=== PATIENT | male | born 1980 | race Two or more races ===

== ENCOUNTER 2024-06-17 13:13 | Emergency (ER) | payer MEDICAID ==
[~2024-06-17] VITALS: Ht 182.9 cm; Wt 159.7 kg
[2024-06-17 14:08] LABS: BASOPHILS % (AUTO) 0.3 % (0.0-2.0); EOSINOPHILS # (AUTO) 0.1 K/uL (0.0-0.7); EOSINOPHILS % (AUTO) 0.7 % (0.0-6.0); HEMATOCRIT 43 % (39-51); HEMOGLOBIN 14.7 g/dL (13.5-17.5); LYMPHOCYTES # (AUTO) 3.1 K/uL (0.8-4.8); LYMPHOCYTES % (AUTO) 32.2 % (20.0-44.0); MEAN CORPUSCULAR HEMOGLOBIN 27 PG (26.0-33.0); MEAN CORPUSCULAR HGB CONC 34 g/dl (31.0-36.0); MEAN CORPUSCULAR VOLUME 80 fL (80-96); MONOCYTES # (AUTO) 0.8 K/uL (0.1-1.30); NEUTROPHILS # (AUTO) 5.7 K/uL (1.8-8.9); NEUTROPHILS % (AUTO) 58.8 % (43.0-81.0); PLATELET COUNT (AUTO) 186 K/uL (150-450); RED BLOOD CELL COUNT(AUTO) 5.37 MIL/uL (4.5-6.0); WHITE BLOOD COUNT (AUTO) 9.7 K/uL (4.3-11.0)
[2024-06-17 14:11] LABS: CALCIUM, SERUM 9.2 mg/dL (8.5-10.1); CREATININE 0.9 mg/dL (0.6-1.3); POTASSIUM 3.9 mmol/L (3.5-5.1)
[2024-06-17] MEDS ORDERED: ACET-2605 PO (16:28)
[2024-06-17] MEDS ORDERED: NAPR-1009 PO (16:28)
[2024-06-17] MEDS ORDERED: BENZ-13 PO (16:28)
[2024-06-17] MEDS ORDERED: ACETAMINOPHEN ES 500 MG TABLET ONE (16:42)
[2024-06-17] MEDS ORDERED: NAPROXEN 250 MG TABLET ONE (16:42)
[2024-06-17] MEDS: NAPROXEN 250 MG TABLET PO ONE (16:47)
[2024-06-17] MEDS: ACETAMINOPHEN ES 500 MG TABLET PO ONE (16:48)
[2024-06-17 16:49] VITALS: BP 139/96; TEMP 98.4; O2SAT 96
== END 2024-06-17 16:50 | disposition home or self-care (01) ==
LOC: ER 14:10
DX: J11.1 Influenza due to unidentified influenza virus with other respiratory manifestations (principal); E11.9 Type 2 diabetes mellitus without complications; I10 Essential (primary) hypertension; R00.0 Tachycardia, unspecified; R05.9 Cough, unspecified; R06.02 Shortness of breath; R07.9 Chest pain, unspecified; R09.81 Nasal congestion; Z20.822 Contact with and (suspected) exposure to COVID-19
CPT/HCPCS: 36415; 71045-TC; 80048-TC; 85025-TC